=== PATIENT | female | born 1980 | race Caucasian/White ===

== ENCOUNTER 2017-02-09 03:36 | Observation (INO) | payer OTHER ==
[2017-02-09] MEDS ORDERED: ONDANSETRON HCL IV 4 MG/2 ML VIAL IV ONE (03:59)
[2017-02-09] MEDS ORDERED: 0.9 % SODIUM CHLORIDE 1,000 ML BAG IV ONE (03:59)
[2017-02-09] MEDS ORDERED: HYDROMORPHONE HCL 1 MG/ML CPJ IVP ONE ×5 (03:59→11:23)
[2017-02-09] MEDS ORDERED: DICYCLOMINE HCL 10 MG/ML AMPUL IM ONE (03:59)
--- NOTE | 2017-02-09 04:07 | Emergency Department Record ---
History of Present Illness - General Chief Complaint: Abdominal Pain Stated Complaint: ABDOMINAL PAIN Time Seen by Provider: 02/09/17 03:52 Source: Patient Mode of Arrival: Ambulatory Limitations: No limitations - History of Present Illness Initial Comments: ruq pain thru to back with known hx of gb stones that started a few hrs ago. Complaint: Abdominal pain Onset/Timin -: Hour(s) Location: RUQ Radiation: Back, Chest Severity: Moderate Quality: Other Consistency: Constant Improves With: Nothing Associated Symptoms: Nausea - Related Data LMP (females 10-50): 3 weeks ago Patient : No Home Medications Medication Instructions Recorded Confirmed Last Taken Levothyroxine Sodium [Synthroid] 175 mcg PO DAILY 04/06/16 02/09/17 04/06/16 Allergies Allergy/AdvReac Type Severity Reaction Status Date / Time diphenhydramine HCl Allergy SWELLING Verified 04/06/16 06:54 [From Benadryl] (GENERAL) Penicillins Allergy SWELLING Verified 04/06/16 06:54 (GENERAL) Travel Screening - Travel/Exposure Within Last 30 Days Have you traveled within the last 30 days?: No - Travel/Exposure Within Last Year Have you traveled outside the [place] in the last year?: No - Additonal Travel Details Have you been exposed to anyone with a communicable illness?: No - Travel Symptoms Symptom Screening: None Review of Systems Reviewed: No additional complaints except as noted below Constitutional: Reports: As per HPI. Denies: Chills, Fever, Malaise, Night sweats, Weakness, Weight change Eyes: Reports: As per HPI. Denies: Eye discharge, Eye pain, Photophobia, Vision change ENT: Reports: As per HPI. Denies: Congestion, Dental pain, Ear pain, Epistaxis , Hearing loss, Throat pain Respiratory: Reports: As per HPI. Denies: Cough, Dyspnea, Hemoptysis, Stridor, Wheezes Cardiovascular: Reports: As per HPI. Denies: Arrhythmia, Chest pain, Dyspnea on exertion, Edema, Murmurs, Orthopnea, Palpitations, Paroxysmal nocturnal dyspnea, Rheumatic Fever, Syncope Endocrine: Reports: As per HPI. Denies: Fatigue, Heat or cold intolerance, Polydipsia, Polyuria Gastrointestinal: Reports: As per HPI. Denies: Abdominal pain, Constipation, Diarrhea, Hematemesis, Hematochezia, Melena, Nausea, Vomiting Genitourinary: Reports: As per HPI. Denies: Abnormal menses, Discharge, Dyspareunia, Dysuria, Frequency, Hematuria, Incontinence, Retention, Urgency Musculoskeletal: Reports: As per HPI. Denies: Arthralgia, Back pain, Gout, Joint swelling, Myalgia, Neck pain Skin: Reports: As per HPI. Denies: Bruising, Change in color, Change in hair/ nails, Lesions, Pruritus, Rash Neurological: Reports: As per HPI. Denies: Abnormal gait, Confusion, Headache, Numbness, Paresthesias, Seizure, Tingling, Tremors, Vertigo, Weakness Psychiatric: Reports: As per HPI. Denies: Anxiety, Auditory hallucinations, Depression, Homicidal thoughts, Suicidal thoughts, Visual hallucinations Hematological/Lymphatic: Reports: As per HPI. Denies: Anemia, Blood Clots, Easy bleeding, Easy bruising, Swollen glands Past Medical History - SOCIAL HISTORY Smoking Status: Never smoker Alcohol Use: None Drug Use: None - RESPIRATORY Hx Respiratory Disorders: No - CARDIOVASCULAR Hx Cardio Disorders: No - NEURO Hx Neuro Disorders: No - GI Hx GI Disorders: No - Hx Genitourinary Disorders: No - ENDOCRINE Hx Diabetes: No Hx Thyroid Disease: Yes - MUSCULOSKELETAL Hx Musculoskeletal Disorders: No - PSYCH Hx Psych Problems: No - HEMATOLOGY/ONCOLOGY Hx Hematology/Oncology Disorders: No Family Medical History Any Significant Family History?: No Hx Cancer: Brother/Sister Physical Exam - General General Appearance: Alert, Oriented x3, Cooperative, Mild distress - Head Head exam: Normal inspection - Eye Eye exam: Normal appearance, PERRL, EOMI Pupils: Normal accommodation - ENT ENT exam: Normal exam, Mucous membranes moist, Normal external ear exam, Normal orophraynx, TM's normal bilaterally Ear exam: Normal external inspection. negative: External canal tenderness Nasal Exam: Normal inspection. negative: Discharge, Sinus tenderness Mouth exam: Normal external inspection, Tongue normal Teeth exam: Normal inspection. negative: Dental caries Throat exam: Normal inspection. negative: Tonsillar erythema, Tonsillar exudate - Neck Neck exam: Normal inspection, Full ROM. negative: Tenderness - Respiratory Respiratory exam: Normal lung sounds bilaterally. negative: Respiratory distress - Cardiovascular Cardiovascular Exam: Regular rate, Normal rhythm, Normal heart sounds - GI/Abdominal GI/Abdominal exam: Soft, Normal bowel sounds, Tenderness (ruq) - Rectal Rectal exam: Deferred - exam: Deferred - Extremities Extremities exam: Normal inspection, Full ROM, Normal capillary refill. negative: Tenderness - Back Back exam: Reports: Normal inspection, Full ROM. Denies: Muscle spasm, Rash noted, Tenderness - Neurological Neurological exam: Alert, CN II-XII intact, Normal gait, Oriented X3 - Psychiatric Psychiatric exam: Normal affect, Normal mood - Skin Skin exam: Dry, Intact, Normal color, Warm Course Vital Signs 02/09/17 03:42 Temperature 98.2 F Pulse Rate 75 Respiratory 20 Rate Blood Pressure 143/97 Pulse Ox 98 - Reevaluation(s) Reevaluation #1: 02/09/17 06:24 pt feels better after second dose of dilaudid. Medical Decision Making - Management Options MDM Management: Additional Work-up Planned (e.g. ADM/Transfer/OP Study) - Data Complexity MDM Data: Labs Ordered and/or Reviewed, X-Ray Ordered and/or Reviewed - Lab Data Result diagrams: 02/09/17 04:00 02/09/17 04:00 Disposition Forms: Patient Portal Access
[2017-02-09 04:08] LABS: BASO % 0.3 % (0-6); EOS % 2.3 % (0-6); GRAN % 72.5 % (47-80); HEMATOCRIT 37.9 % (35.0-47.0); HEMOGLOBIN 12.4 gm/dl (11.6-16.0); LYMPH % 18.4 % (16-45); MEAN CORPUSCULAR HEMOGLOBIN 27.8 pg (27-33); MEAN CORPUSCULAR HGB CONC 32.7 g/dl (32-36); MEAN PLATELET VOLUME 11.1 fl (7.4-10.4); MONO % 6.5 % (0-9); PLATELET COUNT 333 K/uL (130-400); RED BLOOD COUNT 4.46 M/uL (3.80-5.40); RED CELL DISTRIBUTION WIDTH 12.8 % (11.5-14.5); WHITE BLOOD COUNT W/O DIFF 9.6 K/uL (4.2-12.2)
[2017-02-09 04:20] LABS: ALB/GLOB RATIO 1.2 (1.1-1.8); ALBUMIN 4.5 gm/dL (3.5-5.0); ALKALINE PHOSPHATASE 74 U/L (38-126); ALT/SGPT 18 U/L (9-52); ANION GAP 13.4 (7-16); AST/SGOT 19 U/L (14-36); BILIRUBIN,TOTAL 0.38 mg/dL (0.2-1.3); BLOOD UREA NITROGEN 12 mg/dL (7-17); CARBON DIOXIDE 24.6 mmol/L (22-30); CREATININE 0.8 mg/dL (0.52-1.04); EST GLOMERULAR FILTRATION RATE > 60 ml/min; GLUCOSE,RANDOM 109 mg/dL (70-110); LIPASE 58 U/L (23-300); TOTAL PROTEIN 8.2 gm/dL (6.3-8.2)
[2017-02-09 04:44] LABS: URINE APPEARANCE CLEAR; URINE BILIRUBIN NEGATIVE (NEGATIVE); URINE BLOOD TRACE-I (NEGATIVE); URINE COLOR YELLOW; URINE GLUCOSE (UA) NEGATIVE (NEGATIVE); URINE KETONE NEGATIVE (NEGATIVE); URINE LEUKOCYTE ESTERASE NEGATIVE (NEGATIVE); URINE NITRITE NEGATIVE (NEGATIVE); URINE PROTEIN NEGATIVE (NEGATIVE); URINE UROBILINOGEN 0.2 E.U./dL (0.20 - 1.00)
[2017-02-09 04:47] LABS: HCG,QUALITATIVE URINE NEGATIVE (NEGATIVE); URINE BACTERIA NONE SEEN; URINE EPITHELIAL CELLS 0 - 2 (FEW); URINE RBC 0 - 2 (NONE SEEN); URINE WBC 0 - 2 (0-2/hpf)
[2017-02-09] MEDS ORDERED: MAGNESIUM HYDROXIDE/AL HYDROX 30 ML, LIDOCAINE VISC 2% 200 MG PO ONE ×2 (04:49)
[2017-02-09] MEDS ORDERED: ONDANSETRON HCL IV 4 MG/2 ML VIAL IVP ONE ×2 (06:46→13:01)
--- NOTE | 2017-02-09 08:20 | Emergency Department Record ---
History of Present Illness - General Chief Complaint: Abdominal Pain Stated Complaint: ABDOMINAL PAIN Time Seen by Provider: 02/09/17 03:52 Source: Patient Mode of Arrival: Ambulatory Limitations: No limitations - History of Present Illness Initial Comments: see previous chart sudden right upper quad pain at about 3 am today. Complaint: Abdominal pain Onset/Timin -: Hour(s) Location: RUQ Radiation: Back, Chest Severity: Moderate Quality: Other Consistency: Constant Improves With: Nothing Associated Symptoms: Nausea - Related Data LMP (females 10-50): 3 weeks ago Patient : No Home Medications Medication Instructions Recorded Confirmed Last Taken Levothyroxine Sodium [Synthroid] 175 mcg PO DAILY 04/06/16 02/09/17 04/06/16 Allergies Allergy/AdvReac Type Severity Reaction Status Date / Time diphenhydramine HCl Allergy SWELLING Verified 04/06/16 06:54 [From Benadryl] (GENERAL) Penicillins Allergy SWELLING Verified 04/06/16 06:54 (GENERAL) Travel Screening - Travel/Exposure Within Last 30 Days Have you traveled within the last 30 days?: No - Travel/Exposure Within Last Year Have you traveled outside the [place] in the last year?: No - Additonal Travel Details Have you been exposed to anyone with a communicable illness?: No - Travel Symptoms Symptom Screening: None Review of Systems Constitutional: Reports: As per HPI. Denies: Chills, Fever, Malaise, Night sweats, Weakness, Weight change Eyes: Reports: As per HPI. Denies: Eye discharge, Eye pain, Photophobia, Vision change ENT: Reports: As per HPI. Denies: Congestion, Dental pain, Ear pain, Epistaxis , Hearing loss, Throat pain Respiratory: Reports: As per HPI. Denies: Cough, Dyspnea, Hemoptysis, Stridor, Wheezes Cardiovascular: Reports: As per HPI. Denies: Arrhythmia, Chest pain, Dyspnea on exertion, Edema, Murmurs, Orthopnea, Palpitations, Paroxysmal nocturnal dyspnea, Rheumatic Fever, Syncope Endocrine: Reports: As per HPI. Denies: Fatigue, Heat or cold intolerance, Polydipsia, Polyuria Gastrointestinal: Reports: As per HPI, Abdominal pain. Denies: Constipation, Diarrhea, Hematemesis, Hematochezia, Melena, Nausea, Vomiting Genitourinary: Reports: As per HPI. Denies: Abnormal menses, Discharge, Dyspareunia, Dysuria, Frequency, Hematuria, Incontinence, Retention, Urgency Musculoskeletal: Reports: As per HPI. Denies: Arthralgia, Back pain, Gout, Joint swelling, Myalgia, Neck pain Skin: Reports: As per HPI. Denies: Bruising, Change in color, Change in hair/ nails, Lesions, Pruritus, Rash Neurological: Reports: As per HPI. Denies: Abnormal gait, Confusion, Headache, Numbness, Paresthesias, Seizure, Tingling, Tremors, Vertigo, Weakness Psychiatric: Reports: As per HPI. Denies: Anxiety, Auditory hallucinations, Depression, Homicidal thoughts, Suicidal thoughts, Visual hallucinations Hematological/Lymphatic: Reports: As per HPI. Denies: Anemia, Blood Clots, Easy bleeding, Easy bruising, Swollen glands Past Medical History - SOCIAL HISTORY Smoking Status: Never smoker Alcohol Use: None Drug Use: None - RESPIRATORY Hx Respiratory Disorders: No - CARDIOVASCULAR Hx Cardio Disorders: No - NEURO Hx Neuro Disorders: No - GI Hx GI Disorders: No - Hx Genitourinary Disorders: No - ENDOCRINE Hx Diabetes: No Hx Thyroid Disease: Yes - MUSCULOSKELETAL Hx Musculoskeletal Disorders: No - PSYCH Hx Psych Problems: No - HEMATOLOGY/ONCOLOGY Hx Hematology/Oncology Disorders: No Family Medical History Any Significant Family History?: No Hx Cancer: Brother/Sister Physical Exam - General General Appearance: Alert, Oriented x3, Cooperative, No acute distress Limitations: No limitations - Head Head exam: Normal inspection - Eye Eye exam: Normal appearance, PERRL Pupils: Normal accommodation - ENT ENT exam: Normal exam, Mucous membranes moist, Normal external ear exam, Normal orophraynx, TM's normal bilaterally Ear exam: Normal external inspection. negative: External canal tenderness Nasal Exam: Normal inspection. negative: Discharge, Sinus tenderness Mouth exam: Normal external inspection, Tongue normal Teeth exam: Normal inspection. negative: Dental caries Throat exam: Normal inspection. negative: Tonsillar erythema, Tonsillar exudate - Neck Neck exam: Normal inspection, Full ROM. negative: Tenderness - Respiratory Respiratory exam: Normal lung sounds bilaterally. negative: Respiratory distress - Cardiovascular Cardiovascular Exam: Regular rate, Normal rhythm, Normal heart sounds - GI/Abdominal GI/Abdominal exam: Soft, Normal bowel sounds, Tenderness (right upper quad pain and positive murphies sign.) - Rectal Rectal exam: Deferred - exam: Deferred - Extremities Extremities exam: Normal inspection, Full ROM, Normal capillary refill. negative: Tenderness - Back Back exam: Reports: Normal inspection, Full ROM. Denies: Muscle spasm, Rash noted, Tenderness - Neurological Neurological exam: Alert, Normal gait, Oriented X3, Reflexes normal - Psychiatric Psychiatric exam: Normal affect, Normal mood - Skin Skin exam: Dry, Intact, Normal color, Warm Course Vital Signs 02/09/17 02/09/17 02/09/17 03:42 04:42 05:53 Temperature 98.2 F Pulse Rate 75 Pulse Rate [ 55 L 69 Pulse Ox Probe] Respiratory 20 20 20 Rate Blood Pressure 143/97 Blood Pressure 125/80 130/74 [Left Arm] Pulse Ox 98 99 98 02/09/17 06:59 Temperature Pulse Rate Pulse Rate [ 64 Pulse Ox Probe] Respiratory 20 Rate Blood Pressure Blood Pressure 142/82 [Left Arm] Pulse Ox 96 Took over care from Dr. Chan at 7am and patient was in the [facility] department and she had a previous history of kidney stones and gall stones in March 2016. Pain is located in the right upper quad and radiates to the scapular area of the back. No dysuria and she wake suddenly from that pain. Pain on palpation of the gall baladder and positive murphies sign. - Reevaluation(s) Reevaluation #1: pain is some better with dilaudid shots 02/09/17 08:16 Reevaluation #2: discussed case with Dr. Bashir. He will come to the hospital to remove GB 02/09/17 08:20 02/09/17 10:02 Medical Decision Making - Data Complexity MDM Data: Labs Ordered and/or Reviewed, X-Ray Ordered and/or Reviewed - Lab Data Result diagrams: 02/09/17 04:00 02/09/17 04:00 Lab Results 02/09/17 02/09/17 02/09/17 Range/Units 04:00 04:00 04:46 WBC 9.6 (4.2-12.2) K/uL RBC 4.46 (3.80-5.40) M/uL Hgb 12.4 (11.6-16.0) gm/dl Hct 37.9 (35.0-47.0) % MCV 85.0 (81-97) fl MCH 27.8 (27-33) pg MCHC 32.7 (32-36) g/dl RDW 12.8 (11.5-14.5) % Plt Count 333 (130-400) K/uL MPV 11.1 H (7.4-10.4) fl Gran % 72.5 (47-80) % Lymphocytes % 18.4 (16-45) % Monocytes % 6.5 (0-9) % Eosinophils % 2.3 (0-6) % Basophils % 0.3 (0-6) % Sodium 141 (136-145) mmol/L Potassium 3.8 (3.5-5.1) mmol/L Chloride 103 (98-107) mmol/L Carbon Dioxide 24.6 (22-30) mmol/L Anion Gap 13.4 (7-16) BUN 12 (7-17) mg/dL Creatinine 0.8 (0.52-1.04) mg/dL Estimated GFR > 60 ml/min Random Glucose 109 (70-110) mg/dL Calcium 9.6 (8.5-10.1) mg/dL Total Bilirubin 0.38 (0.2-1.3) mg/dL AST 19 (14-36) U/L ALT 18 (9-52) U/L Alkaline Phosphatase 74 (38-126) U/L Total Protein 8.2 (6.3-8.2) gm/dL Albumin 4.5 (3.5-5.0) gm/dL Globulin 3.7 (1.4-4.8) gm/dL Albumin/Globulin Ratio 1.2 (1.1-1.8) Lipase 58 (23-300) U/L Urine Color Yellow Urine Appearance Clear Urine pH 5.5 (5.0-8.0) Ur Specific [place] >= 1.030 (1.002-1.030) Urine Protein Negative (NEGATIVE) Urine Glucose (UA) Negative (NEGATIVE) Urine Ketones Negative (NEGATIVE) Urine Blood Trace-i (NEGATIVE) Urine Nitrite Negative (NEGATIVE) Urine Bilirubin Negative (NEGATIVE) Urine Urobilinogen 0.2 (0.20 - 1.00) E.U./dL Ur Leukocyte Esterase Negative (NEGATIVE) Urine RBC 0 - 2 (NONE SEEN) Urine WBC 0 - 2 (0-2/hpf) Ur Epithelial Cells 0 - 2 (FEW) Urine Bacteria None seen Urine HCG, Qual Negative (NEGATIVE) Disposition Clinical Impression: Cholecystitis, Biliary colic Abdominal pain Qualifiers: Abdominal location: right upper quadrant Qualified Code(s): R10.11 - Right upper quadrant pain Decision to Admit: Admit from ER Forms: Patient Portal Access Time of Disposition: 10:03
[2017-02-09] MEDS ORDERED: ERTAPENEM SODIUM 1 G in 0.9 % SODIUM CHLORIDE 100ML 100 ML IVPB ONE (11:28)
[2017-02-09] MEDS ORDERED: BUPIVACAINE 0.25% W/EPI MPF 30ML VIAL IVP ONE (14:00)
[2017-02-09] MEDS ORDERED: METOCLOPRAMIDE 10 MG TABLET PO ONE (14:45)
[2017-02-09] MEDS ORDERED: ACETAMINOPHEN 1000MG/100 ML PREMIX IV ONE (14:45)
[2017-02-09] MEDS ORDERED: MECLIZINE 25 MG TABLET PO ONE (14:45)
[2017-02-09] MEDS ORDERED: FAMOTIDINE 20MG TABLET PO ONE (14:45)
[2017-02-09] MEDS ORDERED: PROPOFOL 10 MG/ML VIAL IV ONE (20:24)
[2017-02-09] MEDS ORDERED: FENTANYL PF 100MCG/2ML VIAL IV ONE (20:24)
[2017-02-09] MEDS ORDERED: SUCCINYLCHOLINE 20 MG/ML 10ML IVP ONE (20:24)
[2017-02-09] MEDS ORDERED: KETOROLAC 30 MG/ML VIAL IVP ONE (20:24)
[2017-02-09] MEDS ORDERED: GLYCOPYRROLATE 0.2 MG/ML ML IV ONE (20:24)
[2017-02-09] MEDS ORDERED: LIDOCAINE 2% MDV (20MG/ML) 20ML VIAL IV ONE (20:24)
[2017-02-09] MEDS ORDERED: SCOPOLAMINE 1 PATCH TDSY TD ONE (20:24)
[2017-02-09] MEDS ORDERED: DEXAMETHASONE 4 MG/ML 1ML VIAL IVP ONE (20:24)
[2017-02-09] MEDS ORDERED: MIDAZOLAM HCL 2MG/2ML VIAL IV ONE (20:24)
[2017-02-09] MEDS ORDERED: NEOSTIGMINE 1 MG/1 ML,10ML VIAL IV ONE (20:24)
[2017-02-09] MEDS ORDERED: ROCURONIUM BROMIDE 50MG/5ML VIAL IV ONE (20:24)
[2017-02-10] MEDS ORDERED: LEVOTHYROXINE SODIUM 175 MCG TABLET PO SCH (07:00)
--- NOTE | 2017-02-10 07:20 | ULTRASOUND REPORT ---
EXAM: COMPLETE ABDOMEN ULTRASOUND HISTORY: RIGHT UPPER QUADRANT PAIN FOR A WEEK, LOTS OF NAUSEA AND VOMITING. TECHNIQUE: Complete real-time ultrasound examination of the abdomen was obtained. Comparison: No prior abdomen ultrasound with which to compare. FINDINGS: The majority of the pancreas was visualized and appears negative with no pancreatic mass or peripancreatic fluid collection evident. The abdominal aorta appears negative with no aneurysm seen. The IVC was negative as seen. The liver was partially obscured by overlying rib artifact, but it was negative as visualized with no hepatic mass or intrahepatic biliary dilatation seen. The right kidney measures 13 cm in length with no hydronephrosis evident. Numerous echogenic foci are seen in the gallbladder lumen demonstrating shadowing consistent with cholelithiasis. The majority of these appeared to move when the patient was placed in different positions although some near the neck were difficult to see move away from the neck. Mild diffuse prominence of the gallbladder wall. No pericholecystic fluid collection seen. Clinical correlation as to acute cholecystitis suggested. The common duct was seen and was of normal caliber. The left kidney measures 12.7 cm in length with no hydronephrosis evident. The spleen appears negative. IMPRESSION: 1. CHOLELITHIASIS WITH MULTIPLE GALLSTONES SEEN WITHIN THE GALLBLADDER. THE MAJORITY OF THESE APPEAR TO MOVE ALTHOUGH AN APPARENT CALCULUS IN THE REGION OF THE GALLBLADDER NECK COULD NOT CLEARLY BE SEEN TO MOVE AWAY FROM THE GALLBLADDER NECK. MILD DIFFUSE PROMINENCE OF THE GALLBLADDER WALL. CLINICAL CORRELATION TO ACUTE CHOLECYSTITIS SUGGESTED. 2. THE REMAINDER OF THE ABDOMEN ULTRASOUND APPEARS ESSENTIALLY NEGATIVE. NO BILIARY DILATATION SEEN. JOB NUMBER: [id number] MTDD
--- NOTE | 2017-02-11 12:50 | Operative Note ---
DATE OF SURGERY: 02/09/2017 Surgeon: Daniel Bashir DO REFERRING PHYSICIAN: Nir Olivo DO PREOPERATIVE DIAGNOSIS: Acute cholecystitis. POSTOPERATIVE DIAGNOSIS: Acute cholecystitis. OPERATION: Laparoscopic cholecystectomy. Anesthesia: General. Indication: The patient is a 36-year-old female who has had a remote history of biliary colic. She stated that she was supposed to have her gallbladder out years ago, but had issues following up. She stated lately that she is having some ongoing right subcostal postprandial pain. This became so intense for her, she was seen by [facility] in [place] ER today. Repeat ultrasound was done which did show findings consistent with acute cholecystitis. Her clinical exam fit the same. We did discuss cholecystectomy versus medical management. She desired surgical intervention. Her risks include but not limited to, bleeding, infection, duct injury, possible conversion to open, postoperative bile leak, and she understood this fully. Therefore, consent was signed, questions were answered. PROCEDURE: She was taken to the operating room and placed in the supine position. General anesthesia was administered per the Department of Anesthesia. The patient's abdomen was prepped and draped in the usual sterile fashion. At this time adequate time-out was performed. She did receive a preoperative antibiotic. At this time, the infraumbilical region was anesthetized with a total of 3 mL of 0.25% Sensorcaine with epinephrine. A 2 cm infraumbilical incision was made. This was carried down to the anterior rectus fascia. This was incised. A Barbara clamp was placed in the fascial edges and brought up out of the wound. Stay sutures of 0 Vicryl placed. The posterior rectus sheath was identified and incised. The peritoneal cavity was entered bluntly. At this time, a 10 mm blunt Dorie port was placed and adequate pneumoperitoneum was established. Under direct visualization, additional 5 mm epigastric and two 5 mm right subcostal ports were placed. The patient was rotated into reverse Trendelenburg rotation to the left. The gallbladder was identified. The subhepatic space was noted to be very tense and distended. At this time, a needle was used to drain the gallbladder of about 100 mL of clear bile. This was consistent with gallbladder hydrops. The gallbladder was retracted cephalad in a lateral direction to the opening of [place]. The hepatocystic triangle was thoroughly dissected out. We did use suction dissection for much of this. The cystic duct and cystic artery were clearly identified; each 1 was doubly clipped and cut in a standard fashion. Prior to doing the distal half of the gallbladder was released on the liver plate to extend the retro cystic space. There is no aberrant anatomy, no posterior ductal structures. The gallbladder was ____ and essentially peeled off the liver. This was placed in the EndoCatch bag and brought out infraumbilically. The right upper quadrant was rechecked. It was irrigated with approximately 1000 mL of sterile saline. There was no bleeding, no bile leak and no bowel injury noted. The patient was leveled out. Pneumoperitoneum was released. All ports removed. The fascia was closed with 0 Vicryl in a [id number] fashion. The skin in all ports closed with 4-0 Vicryl. She was taken to the recovery room in satisfactory condition. FINDINGS AT THE TIME OF SURGERY: Acute cholecystitis with gallbladder hydrops. DO JAZIEL Delacruz
== END 2017-02-09 20:25 | disposition home or self-care (01) ==
LOC: ER 03:36 → MEDSURG 12:14
PROVIDERS: ADMIT Surgery; ATTEND Surgery
DX: K81.0 Acute cholecystitis (principal); E03.9 Hypothyroidism, unspecified
CPT/HCPCS: 47562; 00790; 99285 ×2; 96376; 96372; 96365; 96375; 83690; 85025; 80053; 81001; 81025; 76700; G0378; J1335; J1885; J2405; J3010; J1170; J0330; J2710; J7030

== ENCOUNTER 2018-12-08 18:19 | Emergency (ER) | payer OTHER ==
[2018-12-08] MEDS ORDERED: ONDANSETRON HCL IV 4 MG/2 ML VIAL IVP ONE (18:34)
[2018-12-08] MEDS ORDERED: MORPHINE SULFATE 10 MG/ML VIAL IVP ONE (18:34)
[2018-12-08] MEDS ORDERED: ASPIRIN 81 MG CHEWABLE TABLET PO ONE (18:34)
--- NOTE | 2018-12-08 18:40 | Emergency Department Record ---
History of Present Illness - General Chief Complaint: Abdominal Pain Stated Complaint: CHEST PAIN Time Seen by Provider: 12/08/18 18:33 Source: Patient Mode of Arrival: Ambulatory Limitations: No limitations - History of Present Illness Initial Comments: 37 yo female presents to ED for evaluation of epigastric discomfort and chest discomfort radiating up to the the right neck resulting in "spasming" of the muscles in her neck. Patient reports that her symptoms began 2 hours prior to arrival, denies previous cardiac disease. Patient denies pain with deep inspiration, denies history of calf pain, swelling, or DVT/PE. Patient denies anything that makes her symptoms worse, denies fevers, chills, vomiting, or change in stools. 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 MD Complaint: Abdominal pain Onset/Timin -: Hour(s) Location: Epigastric Radiation: None Migration to: No migration Severity: Moderate Quality: Aching Consistency: Constant Improves With: Nothing Worsens With: Nothing Associated Symptoms: Nausea - Related Data Allergies Allergy/AdvReac Type Severity Reaction Status Date / Time diphenhydramine HCl Allergy SWELLING Verified 12/08/18 18:53 [From Benadryl] (GENERAL) Penicillins Allergy SWELLING Verified 12/08/18 18:53 (GENERAL) Review of Systems Constitutional: Denies: Chills, Fever, Malaise, Night sweats Eyes: Denies: Eye discharge, Eye pain ENT: Denies: Congestion, Ear pain, Epistaxis Respiratory: Denies: Cough, Dyspnea Cardiovascular: Reports: Chest pain. Denies: Dyspnea on exertion Endocrine: Denies: Fatigue, Heat or cold intolerance Gastrointestinal: Reports: Abdominal pain, Nausea. Denies: Constipation, Vomiting Genitourinary: Denies: Incontinence, Retention Musculoskeletal: Reports: Neck pain ("spasming" of the right neck). Denies: Arthralgia, Back pain Skin: Denies: Bruising, Change in color Neurological: Denies: Abnormal gait, Confusion Psychiatric: Denies: Homicidal thoughts, Suicidal thoughts Hematological/Lymphatic: Denies: Blood Clots, Easy bleeding Past Medical History - SOCIAL HISTORY Smoking Status: Never smoker - RESPIRATORY Hx Respiratory Disorders: No - CARDIOVASCULAR Hx Cardio Disorders: No Hx Palpitations: Yes (occ from stress) - NEURO Hx Neuro Disorders: Yes Hx Dizziness: Yes (has only one balance nerve) Hx of Migraines: Yes (1 q4mo r/t prior sx) - GI Hx GI Disorders: No Hx Abdominal Pain: Yes (r/t gallbladder) - Hx Genitourinary Disorders: No - ENDOCRINE Hx Endocrine Disorders: Yes Hx Diabetes: No Hx Thyroid Disease: Yes - MUSCULOSKELETAL Hx Musculoskeletal Disorders: No - PSYCH Hx Psych Problems: Yes Hx Anxiety: Yes - HEMATOLOGY/ONCOLOGY Hx Hematology/Oncology Disorders: No 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 negative: Conjunctival injection, Periorbital swelling, Periorbital tenderness, Scleral icterus - ENT Ear exam: negative: Auricular hematoma, Auricular trauma Nasal Exam: negative: Active bleeding, Discharge, Dried blood, Foreign body Mouth exam: negative: Drooling, Laceration, Tongue elevation - Neck Neck exam: Normal inspection. negative: Meningismus, Tenderness - Respiratory Respiratory exam: Normal lung sounds bilaterally. negative: Respiratory distress, Rhonchi, Stridor, Wheezes - Cardiovascular Cardiovascular Exam: Regular rate, Normal rhythm, Normal heart sounds - GI/Abdominal GI/Abdominal exam: Soft. negative: Distended, Rebound, Rigid, Tenderness - Rectal Rectal exam: Deferred - exam: Deferred - Extremities Extremities exam: Normal inspection. negative: Pedal edema, Tenderness - Back Back exam: Denies: CVA tenderness (R), CVA tenderness (L) - Neurological Neurological exam: Alert, Normal gait, Oriented X3 - Psychiatric Psychiatric exam: Anxious - Skin Skin exam: Normal color. negative: Abrasion Type of lesion: negative: abrasion Course - Reevaluation(s) Reevaluation #1: 12/08/18 18:40 EKG: NSR 103 Normal axis, normal intervals Nonspecific ST-T changes V2-V3 NO ST ELEVATIONS NOTED IN INFERIOR LEADS CONTRARY EKG interpretation Reevaluation #2: 12/08/18 19:31 Laboratory studies were reviewed and are grossly unremarkable for an acute process. D-Dimer minimally elevated, CTA chest ordered and is pending. Patient is resting comfortably on re-examination on her mobile phone. Patient was updated on all results thus far, reports that she is pain-free and declined morphine. Discussed HEART protocol as well as repeat 3-hour troponin with the patient, she is in agreement with the plan of care as discussed. Reevaluation #3: 12/08/18 21:54 Repeat Troponin negative for myocardial injury CTA Chest: No PE No acute process in the chest Patient was updated on all results, resting pain-free at this time, and appears stable for discharge at this time. Medical Decision Making - Lab Data Result diagrams: 12/08/18 18:45 12/08/18 18:45 Disposition Disposition: Discharge Clinical Impression: Atypical chest pain, Epigastric pain Dyspnea Qualifiers: Dyspnea type: unspecified Qualified Code(s): R06.00 - Dyspnea, unspecified Disposition: Home, Self-Care Condition: (2) Stable Instructions: Abdominal Pain (ED) Additional Instructions: Return to ED if your symptoms worsen or if you have any concerns. Follow-up with your family doctor in 3-5 days as directed. Forms: Patient Portal Access Time of Disposition: 21:55 Quality - Quality Measures Quality Measures: N/A - Blood Pressure Screening Does Patient Have Any of the Following: No Blood Pressure Classification: Hypertensive Reading Systolic Measurement: 152 Diastolic Measurement: 96 Screening for High Blood Pressure: < First Hypertensive BP, F/U Documented > [ [id number]] First Hypertensive Follow-up Interventions: Referral to alternative/primary care provider.
[2018-12-08] MEDS ORDERED: 0.9 % SODIUM CHLORIDE 1000ML 1,000 ML IV SCH (18:45)
[2018-12-08 18:54] LABS: BASO % 0.5 % (0-6); EOS % 2.3 % (0-6); GRAN % 65.7 % (47-80); HEMATOCRIT 39.8 % (35.0-47.0); HEMOGLOBIN 13.2 gm/dl (11.6-16.0); LYMPH % 25.3 % (16-45); MEAN CELL VOLUME 85.4 fl (81-97); MEAN CORPUSCULAR HEMOGLOBIN 28.3 pg (27-33); MEAN CORPUSCULAR HGB CONC 33.2 g/dl (32-36); MEAN PLATELET VOLUME 10.8 fl (7.4-10.4); MONO % 6.2 % (0-9); PLATELET COUNT 350 K/uL (130-400); RED BLOOD COUNT 4.66 M/uL (3.80-5.40); RED CELL DISTRIBUTION WIDTH 12.8 % (11.5-14.5); WHITE BLOOD COUNT W/O DIFF 8.7 K/uL (4.2-12.2)
[2018-12-08 19:04] LABS: BLOOD UREA NITROGEN 9 mg/dL (6-20); CREATININE 0.7 mg/dL (0.5-0.9); EST GLOMERULAR FILTRATION RATE > 60 mL/min; LIPASE 21 U/L (13-60); TOTAL PROTEIN 7.9 g/dL (6.6-8.7)
[2018-12-08 19:05] LABS: URINE APPEARANCE CLEAR; URINE BILIRUBIN NEGATIVE (NEGATIVE); URINE BLOOD NEGATIVE (NEGATIVE); URINE COLOR YELLOW; URINE GLUCOSE (UA) NEGATIVE (NEGATIVE); URINE KETONE NEGATIVE (NEGATIVE); URINE LEUKOCYTE ESTERASE NEGATIVE (NEGATIVE); URINE NITRITE NEGATIVE (NEGATIVE); URINE PROTEIN NEGATIVE (NEGATIVE); URINE UROBILINOGEN 0.2 E.U./dL (0.20 - 1.00)
[2018-12-08 19:06] LABS: GLUCOSE,RANDOM 101 mg/dL (74-109)
[2018-12-08 19:09] LABS: ALB/GLOB RATIO 1.2 (1.1-1.8); ALBUMIN 4.3 g/dL (4.0-5.0); ALKALINE PHOSPHATASE 59 U/L (45-87); ALT/SGPT 12 U/L (<33); AST/SGOT 14 U/L (10.0-35.0)
--- NOTE | 2018-12-10 11:25 | CT ANGIOGRAM REPORT ---
EXAM: CT ANGIOGRAM CHEST CTA w contrast HISTORY: SHORTNESS OF BREATH AND ELEVATED D-DIMER, POSSIBLE PE. TECHNIQUE: CTA of the chest performed following the intravenous administration of iodinated contrast media. Please see the medical record for IV contrast specifics. Postprocessing on an independent workstation was performed with multiple 3D MIP series obtained. COMPARISON: No prior chest CT or CTA with which to compare. FINDINGS: No definite PE identified. No thoracic aortic aneurysm is seen. No pleural or pericardial effusion evident. No hilar or mediastinal adenopathy seen. The patient is probably post-op cholecystectomy. No pneumothorax evident. No acute infiltrate seen. IMPRESSION: 1. NO DEFINITE PE IDENTIFIED. 2. POST-OP CHOLECYSTECTOMY. 3. NO ACUTE INFILTRATE OR PNEUMOTHORAX EVIDENT. JOB NUMBER: [id number] MTDD
== END 2018-12-08 22:14 | disposition home or self-care (01) ==
LOC: ER 18:19
DX: R07.89 Other chest pain (principal); R10.13 Epigastric pain; R11.0 Nausea; R79.89 Other specified abnormal findings of blood chemistry; R06.00 Dyspnea, unspecified; R42 Dizziness and giddiness
CPT/HCPCS: 99284 ×2; 96374; 83690; 85025; 80053; 81003; 84443; 84484; 85379; 71275; 93005; 93010; Q9967; J2405